=== PATIENT | female | born 1970 | race Caucasian/White ===

== ENCOUNTER → 2017-05-27 | Outpatient (CLI) | payer SELFPAY | LOC: M LRY 12:08 | DX: R07.81 Pleurodynia (principal) | CPT/HCPCS: 71101 ==

== ENCOUNTER → 2017-11-23 | Outpatient (CLI) | payer OTHER | LOC: M WUC 10:33 | DX: S92.535A Nondisplaced fracture of distal phalanx of left lesser toe(s), initial encounter for closed fracture (principal); X58.XXXA Exposure to other specified factors, initial encounter; Y92.89 Other specified places as the place of occurrence of the external cause | CPT/HCPCS: 73660 ==

== ENCOUNTER → 2017-11-23 | Outpatient (REF) | payer OTHER ==
[2017-11-24 15:26] LABS: HEPATITIS B SURFACE ANTIGEN NEGATIVE (NEGATIVE)
[2017-11-24 15:40] LABS: HEPATITIS C VIRUS ABY INDEX 0.1 INDEX (<0.8)
[2017-11-24 15:41] LABS: HEPATITIS B CORE ANTIBODY IGM NEGATIVE (NEGATIVE)
[2017-11-24 15:46] LABS: HEPATITIS A ANTIBODY IGM NEGATIVE (NEGATIVE)
== END ==
LOC: M LAB REF 13:17
DX: Z86.19 Personal history of other infectious and parasitic diseases (principal)

== ENCOUNTER 2018-06-18 11:05 | Day surgery (SDC) | payer BC ==
[~2018-06-18] VITALS: Ht 165.1 cm; Wt 67.8 kg
[~2018-06-18 11:05] MED LIST: CoQ10 PO; EXCETAB OR; IMIT6INJ INJ; LIDOCAINE 2% INJ 100 MG/5 ML SDV (FOR ANES.) As Ordered ONE; LR 1,000 ML IV ONE; MIDAZOLAM INJ 2 MG/2 ML VIAL (J2250) As Ordered ONE; NAPR500T OR; PHEN 25 PO; PROM12.56 PO; PROPOFOL 200 MG/20 ML VIAL As Ordered ONE; ROCURONIUM BROMIDE 50 MG/5 ML VIAL As Ordered ONE; SKEL800T5 OR; TIZA4CAP PO; TRAM50TA2 OR; TRAM50TA2 PO; VITAMIN B2 PO; VITAMIN D50000 UNT OR; ZANA4CAP OR; fentaNYL 250 MCG/5 ML INJECTION (J3010) As Ordered ONE; fiber therapy PO
[2018-06-18] MEDS ORDERED: ROPIvacaine 0.5% 30 ML INJECTION (J2795 PER 1MG) ONE (11:06)
[2018-06-18] MEDS ORDERED: LIDOCAINE 1% MDV 20ML VIAL ONE (11:06)
[2018-06-18] MEDS ORDERED: dexameTHASONE 10 MG/1 ML VIAL PRES.FREE (J1100) ONE (11:06)
[2018-06-18 11:39] LABS: HEMATOCRIT 38.8 % (36.0-47.0); HEMOGLOBIN 13.2 g/dl (12.0-15.5); MEAN CORPUSCULAR HEMOGLOBIN 31.4 pg (27.0-33.0); MEAN CORPUSCULAR VOLUME 92.2 fl (80.0-96.0); PLATELET COUNT, AUTOMATED 247 10^3/uL (150-450); RED BLOOD COUNT 4.21 10^6/uL (4.00-5.40); WHITE BLOOD COUNT 5.9 10^3/uL (4.0-10.0)
[2018-06-18] MEDS ORDERED: MIDAZOLAM INJ 2 MG/2 ML VIAL (J2250) As Ordered ONE (11:42)
[2018-06-18] MEDS ORDERED: fentaNYL 100 MCG/2 ML INJECTION (J3010) As Ordered ONE (11:42)
[2018-06-18] MEDS: MIDAZOLAM INJ 2 MG/2 ML VIAL (J2250) IV ONE ×2 (12:06→12:30)
[2018-06-18 12:10] LABS: BLOOD UREA NITROGEN 16 MG/DL (7-18); CALCIUM LEVEL 8.6 MG/DL (8.5-10.1); CARBON DIOXIDE LEVEL 27 MEQ/L (21-32); CHLORIDE LEVEL 108 MEQ/L (98-107); CREATININE FOR GFR 0.93 MG/DL (0.55-1.30); GLOMERULAR FILTRATION RATE > 60.0 (>58); GLUCOSE, FASTING 84 MG/DL (70-100); POTASSIUM SERUM 3.8 MEQ/L (3.5-5.1); SODIUM LEVEL 141 MEQ/L (136-145)
[2018-06-18] MEDS ORDERED: fentaNYL 100 MCG/2 ML INJECTION (J3010) IV ONE (12:30)
[2018-06-18] MEDS ORDERED: dexameTHASONE 4 MG/ML 1ML VIAL (J1100) As Ordered ONE (12:34)
[2018-06-18] MEDS ORDERED: MIDAZOLAM INJ 2 MG/2 ML VIAL (J2250) IV ONE (12:45)
[2018-06-18] MEDS ORDERED: GLYCOPYRROLATE INJ 0.2 MG/ML 2 ML VIAL As Ordered ONE (12:58)
[2018-06-18] MEDS ORDERED: ONDANSETRON 4MG/2ML VIAL (J2405) As Ordered ONE (12:58)
[2018-06-18] MEDS ORDERED: METOCLOPRAMIDE INJ 10MG/2ML VIAL (J2765) As Ordered ONE (12:58)
[2018-06-18] MEDS ORDERED: EPINEPHrine 1MG/ML INJ 30ML MD-VIAL As Ordered ONE (13:03)
[2018-06-18] MEDS: PERCOCET 5MG/325MG TAB PO PRN ×2 (15:54→16:52)
[2018-06-18] MEDS: fentaNYL 100 MCG/2 ML INJECTION (J3010) IV PRN ×4 (15:58→16:14)
[2018-06-18] MEDS ORDERED: ONDANSETRON 4MG/2ML VIAL (J2405) IV PRN (16:00)
[2018-06-18] MEDS ORDERED: HYDROMORPHONE HCL 0.5 MG/ 0.5 ML SYRINGE (J1170 PER 1) IV PRN (16:00)
[2018-06-18] MEDS ORDERED: LR 1,000 ML IV SCH (16:00)
[2018-06-18 17:37] VITALS: BP 122/78
--- NOTE | 2018-06-18 21:04 | RO ---
DATE OF PROCEDURE: 06/18/2018 PREOPERATIVE DIAGNOSIS: 1. Left shoulder full-thickness rotator cuff tear. 2. Left shoulder anterior instability. 3. Left shoulder long head biceps tendonitis. POSTOPERATIVE DIAGNOSIS: 1. Left shoulder full-thickness rotator cuff tear. 2. Left shoulder anterior instability. 3. Left shoulder long head biceps tear. PROCEDURE: 1. Left shoulder arthroscopic rotator cuff repair. 2. Left shoulder arthroscopic anterior labral repair. 3. Left shoulder open subpectoral biceps tenodesis. 4. Left shoulder arthroscopic labral debridement, subacromial decompression. SURGEON: Dr. Lars Lancaster HVAC SERVICE TECHNICIAN: JOSR Ruano ANESTHESIA: General: Preoperative nerve block. IV FLUIDS: Lactated Ringer's ESTIMATED BLOOD LOSS: 5 mL IMPLANTS: Arthrex proximal biceps button times one Arthrex 4.75 mm Peak SwiveLock anchor times four, Arthrex 3 mm knotless suture tack times one, Arthrex 2.9 mm PushLock anchor times one with labral tape closure Monocryl nylon. PROCEDURE: The patient was identified in preoperative holding area. The left shoulder marked by myself. She had interscalene nerve block. She was brought to the operating room, placed supine on a well-padded OR table with the beanbag. General anesthesia was induced. She received appropriate IV antibiotics within 1 hour of incision. Examination under anesthesia revealed 180 degrees of forward flexion 90 of external rotation arm at her side grade 2 plus anterior load and shift grade 1 posterior load and shift. She was then placed into the right side down lateral decubitus position with an axillary roll and all bony prominences well padded. Bilateral Venodyne boots for DVT prophylaxis. The left arm was placed into the Arthrex star sleeve lateral decubitus traction device to 10 pounds of traction. Left shoulder was then prepped and draped in normal sterile fashion with Chloraprep. Again she received appropriate IV antibiotics within the hour of incision. Prior to incision time-out performed per hospital protocol. Margarito Hunter was present for the entire procedure and participated in all essential portions procedure including patient positioning, draping, holding the arthroscope, using the mallet and punch to create sockets, placing anchors, retrieving suture and holding the arthroscope and holding retractors during the biceps tenodesis. After and infiltrating the joint with lactated Ringer's, a standard posterior portal was made with 11-blade. 30 degrees arthroscope introduced in the joint revealing full thickness tear of the supraspinatus. There was longitudinal tearing of the long head of biceps tendon. The subscapularis appeared intact without tearing. The humeral head was noted to be subluxated anteriorly on the glenoid. There was deficient anterior inferior labrum although no displace labral tear appreciated. There is minimal fraying at the posterior inferior labrum no significant tearing. The posterior rotator cuff was intact. An anterior working portal was established through the rotator interval. Purple Arthrex cannula was brought in. On palpation with a switching stick of the anterior inferior labrum there was a sulcus there consistent with some partial tearing and deficient capsule. The patient also had a positive drive-through sign. I determined the patient would need to both anterior labral repair for instability and the rotator cuff repair. On probing of the long head of biceps tendon there is longitudinal split tearing. I used a meniscal punch to release the biceps off the superior labrum. Shaver was used to debride the stump. There was minimal lift off of the subscapularis with an aggressive posterior lever push maneuver. There was no actual tearing of the tendon. No retraction. We then proceeded with open subpectoral biceps tenodesis. Incision made the 15 blade just lateral to the axilla. Dissection with Metzenbaum scissors down to the biceps fascia which was carefully opened with scissors. The right angle clamp was used to dissect out the long head biceps tendon uneventfully. There was extensive degenerative tearing in that tendon. The Arthrex proximal biceps kit was then used to place a running locking whip stitched with a #2 FiberWire on the fiber loop starting just proximal to the muscle tendon junction the running 2 cm. Sutures were loaded through the button per routine. Cautery used to daniela out the proposed drill hole within the bicipital groove. The sutures approximated to that cautery daniela and this was found to restore the resting tension. The spade tip drill was used to create a unicortical drill hole. Irrigation remove all bony debris. Button placed through the drill hole on its corporate safety director sutures were toggled which flipped the button and brought the tendon along the bicipital groove. Free needle passed through the biceps tendon in a locking fashion. Knots were tied by hand and this nicely restore the resting tension. Excess suture trimmed and discarded. Incision closed correction irrigated extensively with arthroscopy fluid and then I closed the fascia with two Vicryl followed by a 2-0 Vicryl subcuticular closure running 3-0 Monocryl. At the end of the case Steri-Strips were placed over that incision. The arthroscope was then placed back into the joint. Again felt that this required labral repair as the patient had significant complaints of instability in the office had a positive apprehension and relocation test the office. No posterior labral repair indicated. An accessory superolateral portal was created just off the anterior edge of the acromion. I was actually able to bring a second cannula through the supraspinatus tear. The hooked cautery was used to develop the interval between labrum and articular cartilage in the anterior inferior labrum from 6:30 to 8:30 position. Labral elevators used to develop a full-thickness plane between glenoid and labrum and capsule. The drill sleeve for a knotless suture tack was placed at the 7 o'clock position and the anchor placed per routine. A 90 degrees suture lasso was used to shuttle nitinol wire through the anterior inferior labrum and capsule grabbing the anterior band of the inferior glenohumeral ligament. The sutures were shuttled per routine for knotless suture tack. As the final suture was tensioned my hospital clinic assistant applied a posterior vector to the proximal humerus and the sutures maximally tensioned which nicely restored the bumper affect in the anterior inferior labrum. That suture was cut with arthroscopic torch cutter. Next a lasso was used to shuttle nitinol wire through labrum at the 7:30 position. The labral tape was passed. The drill sleeve for 2.9 mm PushLock was used to create a socket at the 8:30 position. Sutures were loaded through the PushLock anchor in the anchor was advanced per routine and then malleted per routine with excellent bahai of the bumper affect. Sutures also cut with arthroscopic torch cutter. At the completion of this two anchor labral repair of the humeral head was now centered nicely on the glenoid. The drive-through sign of been eliminated. Now inspecting the subscapularis there is actually no lift off and I probed it with a switching stick and there is no lift off the subscap. The arthroscope was placed into the subacromial space lateral working portal was established and a bursectomy performed shaver and cautery. Degenerative tissue was still attached to the greater tuberosity was cleared off the cautery then the ring curette used to remove soft tissue and create a bleeding surface. The cuff grasper was used to manipulate the tendon to determine the appropriate position for the anchors. This was somewhat L type configuration. Traction stitch was then placed through the tendon as there was some increased tension and as my hospital clinic assistant applied tension with the FiberWire use the cautery to perform releases between the between the bursa in the acromion. I then used a switching stick both superior and inferior to the rotator cuff as my hospital clinic assistant applied traction to perform additional releases. There was dramatically improved lateral excursion on the tendon. Then proceeded with a speed bridge repair. The 4.75 mm Peak SwiveLock anchors were placed preloaded with tape just off the articular surface in both the anterior posterior portions of the tuberosity. The tapes were cut so that the could be passed individually for total of four passes. Spur branch used to pass the sutures in a horizontal mattress fashion from anterior to posterior. Next the anterior tapes from each anchor were brought out through the lateral portal cannula used to determine the appropriate position for the first lateral anchor and then the smaller punch used to create a socket in the anterolateral greater tuberosity. The anchor was docked, sutures tensioned anchor malleted and then advanced by hand with excellent fixation. The steps were repeated for the posterior tapes through a post a lateral SwiveLock was also a great fixation. This recreated the box and X configuration with the tape sutures and there were no dog ears. The shoulder was rotated. There is no lift off. Shoulder was irrigated and drained. Portals closed with nylon suture. Steri-Strips placed over the biceps incision. Bulky sterile dressing applied. She was carefully positioned into the ARC2 pillow and then awoken from general anesthesia, transferred to PACU stable. Complications none.
== END 2018-06-18 17:40 | disposition home or self-care (01) ==
LOC: M SDC 11:05
PROVIDERS: ATTEND Orthopaedic Surgery
DX: M75.122 Complete rotator cuff tear or rupture of left shoulder, not specified as traumatic (principal); S46.112A Strain of muscle, fascia and tendon of long head of biceps, left arm, initial encounter; M25.312 Other instability, left shoulder; Q07.00 Arnold-Chiari syndrome without spina bifida or hydrocephalus; Q79.6 Ehlers-Danlos syndromes; G43.909 Migraine, unspecified, not intractable, without status migrainosus; Z79.899 Other long term (current) drug therapy; Z78.0 Asymptomatic menopausal state; Z87.891 Personal history of nicotine dependence; X58.XXXA Exposure to other specified factors, initial encounter; Y93.89 Activity, other specified; Y92.89 Other specified places as the place of occurrence of the external cause; Y99.8 Other external cause status
CPT/HCPCS: 23430; 29826; 29827; 36415; 64415; 80048; 85027; 88304; C1713; J0690; J1100; J2250; J2405; J2765; J2795; J3010

== ENCOUNTER 2020-02-17 10:50 | Outpatient (RCR) | payer BC ==
[~2020-02-17 10:50] MED LIST changes: -LIDOCAINE 2% INJ 100 MG/5 ML SDV (FOR ANES.) As Ordered ONE; -LR 1,000 ML IV ONE; -MIDAZOLAM INJ 2 MG/2 ML VIAL (J2250) As Ordered ONE; -PROPOFOL 200 MG/20 ML VIAL As Ordered ONE; -ROCURONIUM BROMIDE 50 MG/5 ML VIAL As Ordered ONE; -fentaNYL 250 MCG/5 ML INJECTION (J3010) As Ordered ONE
== END 2020-02-19 ==
LOC: M ST 10:50
PROVIDERS: ATTEND Psychiatry & Neurology Neurology
DX: R13.10 Dysphagia, unspecified (principal)

== ENCOUNTER → 2020-02-21 | Outpatient (CLI) | payer BC ==
--- NOTE | 2020-03-02 10:03 | REP ---
COMPLETE ABDOMINAL SONOGRAPHY HISTORY: Left-sided abdominal pain. COMPARISON: CT study 03/09/2015. FINDINGS: Scanning through the right upper quadrant of the abdomen demonstrates a normal size thinned walled gallbladder without evidence of stone or polyp. Common bile duct is normal measuring 0.5 cm in greatest diameter. Limited views of the pancreas show no abnormality. There is no evidence of ascites. The spleen is normal in size, 10.2 cm in greatest diameter, and homogeneous in texture. Renal cortical echogenicity pattern is normal and renal contours are smooth bilaterally. The right kidney measures 9.6 x 4.6 x 3.9 cm. Left renal dimensions are 10.7 x 5.4 x 5.0 cm. Abdominal aorta measures 2.6 cm in AP dimension proximally and 1.9 cm in AP dimension at mid level. No left lower quadrant mass is seen. No evidence of adenopathy. IMPRESSION: Negative complete abdominal sonography. MTDD
== END ==
LOC: M RAD 09:12
PROVIDERS: ATTEND Physician Assistant
DX: R10.9 Unspecified abdominal pain (principal)

== ENCOUNTER → 2020-06-15 | Outpatient (CLI) | payer BC ==
[~2020-06-15] MED LIST changes: +GASTROGRAFIN SOLUTION 30ML (Q9963) As Ordered ONE; +ISOVUE-370 76% 100ML VIAL As Ordered ONE
--- NOTE | 2020-06-17 11:28 | REP ---
INDICATION: LEFT LOWER QUADRANT PAIN. COMPARISON: None TECHNIQUE: Axial contrast-enhanced images from the lung bases to the pubic symphysis using oral and 100 cc Isovue 370 intravenous contrast material. Coronal and sagittal reformations obtained. This CT examination was performed using the following dose reduction techniques: Automated exposure control, adjustment of mA and/or kv according to the patient's size, and the use of iterative reconstruction technique. FINDINGS: Liver, spleen, pancreas, gallbladder, bilateral adrenal glands and kidneys are normal. The enteric system including stomach, small, and large bowel appears normal. No evidence for obstruction or acute inflammatory process. Normal terminal ileum and appendix are identified in the right lower quadrant. Colonic and sigmoid diverticulosis noted without acute diverticulitis. Pelvis demonstrates normal bladder. The uterus and primarily the lower uterine segment and cervical region demonstrate heterogeneous enlargement which may reflect myomatous changes although further investigation may be warranted. The bilateral adnexa demonstrate left ovarian cyst. No ascites. No free air. No intraperitoneal or retroperitoneal adenopathy. Abdominal aorta and vasculature appear normal. Musculoskeletal structures are intact and without acute osseous abnormality. IMPRESSION: 1. Diverticulosis without acute diverticulitis. 2. Somewhat heterogeneous prominent appearance to the lower uterine segment and cervical region of the uterus. Consider pelvic ultrasound for further investigation. No associated pelvic free fluid or adenopathy identified. <Electronically signed by David Olivier > 06/17/20 2391
== END ==
LOC: M RAD 12:37
PROVIDERS: ATTEND Physician Assistant
DX: R10.32 Left lower quadrant pain (principal); K57.30 Diverticulosis of large intestine without perforation or abscess without bleeding; N83.202 Unspecified ovarian cyst, left side; N85.2 Hypertrophy of uterus
CPT/HCPCS: 74177; Q9963; Q9967

== ENCOUNTER → 2022-01-19 | Outpatient (CLI) | payer BC ==
[~2022-01-19] MED LIST changes: -GASTROGRAFIN SOLUTION 30ML (Q9963) As Ordered ONE; -ISOVUE-370 76% 100ML VIAL As Ordered ONE
[2022-01-19 12:05] LABS: BASO # 0.1 10^3/uL (0.0-0.2); BASO % 0.9 % (0.0-1.0); EOS # 0.2 10^3/uL (0.0-0.5); EOS % 2.3 % (0.0-3.0); HEMATOCRIT 41.2 % (36.0-47.0); HEMOGLOBIN 13.7 g/dl (12.0-15.5); LYMPH # 2.4 10^3/uL (1.5-5.0); MEAN CORPUSCULAR HEMOGLOBIN 31.6 pg (27.0-33.0); MEAN CORPUSCULAR HGB CONC 33.3 g/dl (32.0-36.5); MEAN CORPUSCULAR VOLUME 94.9 fl (80.0-96.0); MONO # 0.5 10^3/uL (0.0-0.8); MONO % 7.3 % (2.0-8.0); NEUTROPHILS # 3.4 10^3/uL (1.5-8.5); PLATELET COUNT, AUTOMATED 267 10^3/uL (150-450); RED BLOOD COUNT 4.34 10^6/uL (4.00-5.40); WHITE BLOOD COUNT 6.6 10^3/uL (4.0-10.0)
[2022-01-19 12:13] LABS: BACTERIA, URINE SMALL AMOUNT; HYALINE CAST, URINE NONE SEEN /lpf (0-1); RBC, URINE 0-1 /hpf (0-3); SQUAMOUS EPITHELIAL CELL URINE SMALL AMOUNT /hpf (SMALL AMT)
[2022-01-19 12:14] LABS: MUCUS, URINE SMALL AMOUNT (NEGATIVE)
[2022-01-19 12:26] LABS: HEMOGLOBIN A1c 5.4 %
[2022-01-19 12:33] LABS: ERYTHROCYTE SEDIMENTATION RATE 22 mm/hr (0-30)
[2022-01-19 12:51] LABS: ALBUMIN 3.6 GM/DL (3.2-5.2); ALT/SGPT 29 U/L (12-78); BILIRUBIN,TOTAL 0.6 MG/DL (0.2-1.0); BLOOD UREA NITROGEN 28 MG/DL (7-18); CALCIUM LEVEL 9.4 MG/DL (8.5-10.1); CARBON DIOXIDE LEVEL 28 MEQ/L (21-32); CHLORIDE LEVEL 105 MEQ/L (98-107); CHOLESTEROL LEVEL 181 MG/DL (<200); CREATININE FOR GFR 0.88 MG/DL (0.55-1.30); FREE T4 0.83 NG/DL (0.76-1.46); GLOMERULAR FILTRATION RATE > 60.0 (>51); GLUCOSE, FASTING 86 MG/DL (70-100); HDL CHOLESTEROL 52 MG/DL (>40); IRON (FE) 58 UG/DL (50-170); LDL CHOLESTEROL 111 MG/DL (<100); MAGNESIUM LEVEL 2.4 MG/DL (1.8-2.4); NON-HDL-C 129 MG/DL; PERCENT SATURATION 20.2 % (13.2-45.0); POTASSIUM SERUM 4.3 MEQ/L (3.5-5.1); SODIUM LEVEL 139 MEQ/L (136-145); TOTAL IRON BINDING CAPACITY 287 UG/DL (250-450); TOTAL PROTEIN 7.1 GM/DL (6.4-8.2); TRIGLYCERIDES LEVEL 92 MG/DL (<150); URIC ACID 5.3 MG/DL (2.6-6.0)
[2022-01-19 12:52] LABS: C REACTIVE PROTEIN QUANTITATIV 0.47 MG/DL (0.00-0.30); FERRITIN 75 NG/ML (8-252); RHEUMATOID FACTOR QUANT < 10.0 IU/ML (<15.0)
[2022-01-19 13:26] LABS: LUTEINIZING HORMONE 36.6 mIU/mL; PROGESTERONE 0.26 NG/ML; PROLACTIN 6.5 NG/ML; TOTAL 25(OH) VITAMIN D 26.6 NG/ML (30.0-100.0); VITAMIN B12 LEVEL 614 PG/ML (247-911)
[2022-01-19 13:27] LABS: FOLATE 11.5 NG/ML (>5.4); FOLLICLE STIMULATING HORMONE 91.7 mIU/mL
[2022-01-22 03:07] LABS: ANTINUCLEAR ANTIBODIES DIRECT Negative (Negative); CYCLIC CITRULLINATED PEPTIDE 80 units (0-19); ESTROGENS TOTAL 55 pg/mL (.)
== END ==
LOC: M WUC 08:28
PROVIDERS: ATTEND Physician Assistant
DX: N91.2 Amenorrhea, unspecified (principal); E55.9 Vitamin D deficiency, unspecified; Z98.84 Bariatric surgery status

== ENCOUNTER → 2022-07-28 | Outpatient (REF) | payer BC | LOC: M SFHCRHEU 10:42 | PROVIDERS: ATTEND Internal Medicine | DX: Z53.9 Procedure and treatment not carried out, unspecified reason (principal) ==

== ENCOUNTER → 2022-10-12 | Outpatient (CLI) | payer BC | LOC: M RAD 08:27 | PROVIDERS: ATTEND Internal Medicine | DX: M18.11 Unilateral primary osteoarthritis of first carpometacarpal joint, right hand (principal); M19.042 Primary osteoarthritis, left hand; M19.041 Primary osteoarthritis, right hand; R79.82 Elevated C-reactive protein (CRP); R76.8 Other specified abnormal immunological findings in serum ==

== ENCOUNTER → 2022-11-29 | Outpatient (CLI) | payer BC | LOC: M RAD 12:35 | PROVIDERS: ATTEND Physician Assistant | DX: J90 Pleural effusion, not elsewhere classified (principal); R50.9 Fever, unspecified; R21 Rash and other nonspecific skin eruption; R10.9 Unspecified abdominal pain ==

== ENCOUNTER → 2023-01-24 | Outpatient (CLI) | payer BC ==
[2023-01-24 13:50] LABS: BASO # 0.1 10^3/uL (0.0-0.2); BASO % 0.9 % (0.0-1.0); EOS # 0.3 10^3/uL (0.0-0.5); HEMATOCRIT 41.7 % (36.0-47.0); HEMOGLOBIN 13.3 g/dl (12.0-15.5); LYMPH # 2.8 10^3/uL (1.5-5.0); LYMPH % 37.9 % (24.0-44.0); MEAN CORPUSCULAR HEMOGLOBIN 30.4 pg (27.0-33.0); MEAN CORPUSCULAR HGB CONC 31.9 g/dl (32.0-36.5); MEAN CORPUSCULAR VOLUME 95.2 fl (80.0-96.0); MONO # 0.8 10^3/uL (0.0-0.8); MONO % 10.1 % (2.0-8.0); NEUTROPHILS # 3.5 10^3/uL (1.5-8.5); NEUTROPHILS % 46.7 % (36.0-66.0); PLATELET COUNT, AUTOMATED 225 10^3/uL (150-450); RED BLOOD COUNT 4.38 10^6/uL (4.00-5.40); WHITE BLOOD COUNT 7.4 10^3/uL (4.0-10.0)
[2023-01-24 14:16] LABS: ALBUMIN 3.8 G/DL (3.2-5.2); ALKALINE PHOSPHATASE 128 U/L (46-116); ALT/SGPT 69 U/L (7.0-40); AST/SGOT 47 U/L (<34); BILIRUBIN,TOTAL 1.2 MG/DL (0.3-1.2); BLOOD UREA NITROGEN 24 MG/DL (9-23); CALCIUM LEVEL 9.1 MG/DL (8.5-10.1); CARBON DIOXIDE LEVEL 30 MMOL/L (20-31); CHLORIDE LEVEL 106 MMOL/L (98-107); CREATININE FOR GFR 0.88 MG/DL (0.55-1.30); GLOMERULAR FILTRATION RATE > 60.0 (>51); GLUCOSE, FASTING 81 MG/DL (60-100); POTASSIUM SERUM 4.9 MMOL/L (3.5-5.1); SODIUM LEVEL 143 MMOL/L (136-145); TOTAL PROTEIN 6.3 G/DL (5.7-8.2)
[2023-01-24 15:00] LABS: ERYTHROCYTE SEDIMENTATION RATE 22 mm/hr (0-30)
== END ==
LOC: M PLALAB 10:06
PROVIDERS: ATTEND Internal Medicine Infectious Disease
DX: A69.20 Lyme disease, unspecified (principal); R74.8 Abnormal levels of other serum enzymes

== ENCOUNTER → 2023-04-10 | Outpatient (REF) | payer BC | LOC: M LAB REF 12:18 | PROVIDERS: ATTEND Physician Assistant | DX: L65.9 Nonscarring hair loss, unspecified (principal) ==

== ENCOUNTER → 2023-04-18 | Outpatient (CLI) | payer BC | LOC: M RAD 14:44 | PROVIDERS: ATTEND Physician Assistant | DX: L65.9 Nonscarring hair loss, unspecified (principal) ==

== ENCOUNTER → 2023-04-19 | Outpatient (CLI) | payer BC | LOC: M RAD 10:42 | PROVIDERS: ATTEND Physician Assistant | DX: R74.8 Abnormal levels of other serum enzymes (principal) ==

== ENCOUNTER → 2023-06-08 | Outpatient (CLI) | payer BC | LOC: M PLALAB 11:51 | PROVIDERS: ATTEND Family Medicine | DX: M25.521 Pain in right elbow (principal) ==

== ENCOUNTER → 2023-10-05 | Outpatient (CLI) | payer BC ==
[~2023-10-05] MED LIST changes: +EQL50TAB2 PO; +K 10100T PO; +VITA-243 PO
== END ==
LOC: M SOG 08:01
PROVIDERS: ATTEND Physician Assistant
DX: M79.644 Pain in right finger(s) (principal); M18.11 Unilateral primary osteoarthritis of first carpometacarpal joint, right hand

== ENCOUNTER 2023-11-13 06:14 | Day surgery (SDC) | payer BC ==
[~2023-11-13] VITALS: Ht 165.1 cm; Wt 102.1 kg
[~2023-11-13 06:14] MED LIST changes: +ALEV220T22 PO; +DOXY100C3 PO; +PRED20TA PO
[2023-11-13] MEDS: LIDOCAINE W/EPINEPHRINE 1% 20ML VIAL XX ONE (07:00)
[2023-11-13] MEDS: SODIUM BICARBONATE 8.4% INJ 50MEQ 50ML VIAL XX ONE (07:00)
[2023-11-13] MEDS: BACITRACIN OINTMENT 30GM TUBE As Ordered ONE (08:02)
[2023-11-13 08:10] VITALS: BP 129/67; TEMP 98; O2SAT 99
== END 2023-11-13 08:32 | disposition home or self-care (01) ==
LOC: M SDC 06:14
PROVIDERS: ATTEND Orthopaedic Surgery Hand Surgery
DX: M65.311 Trigger thumb, right thumb (principal)

== ENCOUNTER 2024-03-14 10:22 | Day surgery (SDC) | payer BC ==
[~2024-03-14] VITALS: Ht 165.1 cm; Wt 101.4 kg
[~2024-03-14 10:22] MED LIST changes: +NS 250 ML IV ONE
[2024-03-14] MEDS ORDERED: LIDOCAINE 2% 100MG/5ML SDV (FOR ANES.) As Ordered ONE (11:18)
[2024-03-14] MEDS ORDERED: dexmedeTOMIDine (4MCG/ML)200MCG/50ML BTL (PRECEDEX) As Ordered ONE (11:18)
[2024-03-14] MEDS ORDERED: propofoL 200 MG/20 ML VIAL As Ordered ONE (11:18)
[2024-03-14] MEDS ORDERED: GLYCOPYRROLATE INJ 0.2 MG/ML 2 ML VIAL As Ordered ONE (11:18)
[2024-03-14 12:12] VITALS: TEMP 97.7
[2024-03-14 12:30] VITALS: BP 138/63; O2SAT 96
== END 2024-03-14 12:42 | disposition home or self-care (01) ==
LOC: M OPP 10:22
PROVIDERS: ATTEND Internal Medicine Gastroenterology
DX: K63.5 Polyp of colon (principal); K58.1 Irritable bowel syndrome with constipation; K57.30 Diverticulosis of large intestine without perforation or abscess without bleeding; K64.8 Other hemorrhoids; K29.70 Gastritis, unspecified, without bleeding; K44.9 Diaphragmatic hernia without obstruction or gangrene; G43.909 Migraine, unspecified, not intractable, without status migrainosus; Q79.60 Ehlers-Danlos syndrome, unspecified; G93.5 Compression of brain; Z88.4 Allergy status to anesthetic agent; Z91.048 Other nonmedicinal substance allergy status
CPT/HCPCS: 43239; 45385; 88305; J1596

== ENCOUNTER → 2024-12-05 | Outpatient (CLI) | payer BC ==
[~2024-12-05] MED LIST changes: -EQL50TAB2 PO; -NS 250 ML IV ONE; +VITA1TAB82 PO
[2024-12-05 12:55] LABS: APPEARANCE, URINE CLOUDY (CLEAR); BACTERIA, URINE AUTO 1+ (NEGATIVE); BILIRUBIN, URINE AUTO NEGATIVE (NEGATIVE); BLOOD, URINE BLOOD NEGATIVE (NEGATIVE); GLUCOSE, URINE (UA) AUTO NEGATIVE (NEGATIVE); KETONE, URINE AUTO NEGATIVE (NEGATIVE); LEUKOCYTE ESTERASE, URINE AUTO NEGATIVE (NEGATIVE); MUCUS, URINE SMALL (NEGATIVE); NITRITE, URINE AUTO NEGATIVE (NEGATIVE); PROTEIN, URINE AUTO NEGATIVE (NEGATIVE); RBC, URINE AUTO 0 /HPF (0-3); SPECIFIC GRAVITY URINE AUTO 1.024 (1.002-1.035); SQUAMOUS EPITHELIAL CELL UR AU 2 /HPF (0-6); UROBILINOGEN, URINE AUTO 0.2 mg/dL (0.0-2.0); WBC, URINE AUTO 1 /HPF (0-3)
[2024-12-05 13:15] LABS: PLATELET COUNT, AUTOMATED 244 10^3/uL (150-450)
[2024-12-05 13:22] LABS: ERYTHROCYTE SEDIMENTATION RATE 28 mm/hr (0-30)
[2024-12-05 13:44] LABS: C REACTIVE PROTEIN QUANTITATIV 1.37 MG/DL (<1.0)
[2024-12-05 13:45] LABS: ALT/SGPT 26.0 U/L (7.0-40); AST/SGOT 18.0 U/L (<34); CALCIUM LEVEL 9.3 MG/DL (8.5-10.1); CARBON DIOXIDE LEVEL 27.0 MMOL/L (20-31); CHLORIDE LEVEL 105.0 MMOL/L (98-107); CHOLESTEROL LEVEL 177.0 MG/DL (<200); CHOLESTEROL RISK RATIO 3.74 (<5); CREATININE FOR GFR 0.9 MG/DL (0.55-1.30); GLOMERULAR FILTRATION RATE 76.0 (>51); LDL CHOLESTEROL 109.5 MG/DL (<100); NON-HDL-C 129.7 MG/DL; POTASSIUM SERUM 4.2 MMOL/L (3.5-5.1); SODIUM LEVEL 146.0 MMOL/L (136-145); TRIGLYCERIDES LEVEL 101.0 MG/DL (<150)
[2024-12-05 13:47] LABS: TOTAL 25(OH) VITAMIN D 17.9 NG/ML (20.0-100.0)
[2024-12-05 13:48] LABS: FREE T4 1.09 NG/DL (0.89-1.76); VITAMIN B12 LEVEL 692.0 PG/ML (211-911)
== END ==
LOC: M WUC 08:39
PROVIDERS: ATTEND Nurse Practitioner Family
DX: M47.813 Spondylosis without myelopathy or radiculopathy, cervicothoracic region (principal); Q07.00 Arnold-Chiari syndrome without spina bifida or hydrocephalus; M19.90 Unspecified osteoarthritis, unspecified site; Z86.19 Personal history of other infectious and parasitic diseases